=== PATIENT | male | born 1965 | race Caucasian/White ===

== ENCOUNTER 2017-04-21 10:02 | Day surgery (SDC) | payer OTHER ==
[2017-04-21] MEDS ORDERED: D5 LR 1000 ML 1,000 ML IV ONE (10:04)
[2017-04-21] MEDS ORDERED: DIPRIVAN VIAL 20 ML ONE ×2 (10:25→10:41)
[2017-04-21 11:06] VITALS: BP 113/65
== END 2017-04-21 11:05 | disposition home or self-care (01) ==
LOC: SURG1 10:02
PROVIDERS: ATTEND Internal Medicine Gastroenterology
PROC: 0DJ08ZZ Inspection of Upper Intestinal Tract, Via Natural or Artificial Opening Endoscopic (ICD-10-PCS; principal; 2017-04-21 12:45)
PROC: 0DB68ZX Excision of Stomach, Via Natural or Artificial Opening Endoscopic, Diagnostic (ICD-10-PCS; principal; 2017-04-21 12:45)
PROC: 0DB58ZX Excision of Esophagus, Via Natural or Artificial Opening Endoscopic, Diagnostic (ICD-10-PCS; principal; 2017-04-21 12:45)
PROC: 0DB88ZX Excision of Small Intestine, Via Natural or Artificial Opening Endoscopic, Diagnostic (ICD-10-PCS; principal; 2017-04-21 12:45)
DX: R11.2 Nausea with vomiting, unspecified (principal); R10.13 Epigastric pain; K21.9 Gastro-esophageal reflux disease without esophagitis; K22.8 Other specified diseases of esophagus; K29.60 Other gastritis without bleeding; K51.213 Ulcerative (chronic) proctitis with fistula
CPT/HCPCS: A4217; J3490; J7120